=== PATIENT | female | born 1970 | race Caucasian/White ===

== ENCOUNTER 2019-05-06 20:09 | Emergency (ER) | payer BC, OTHER ==
--- NOTE | 2019-05-06 20:22 | UC ---
Complaint Female HPI - HPI Summary HPI Summary: 49 yo female presents with UTI symptoms. She tells me that beginning earlier today she noticed urinary frequency, bladder pressure, and slight bloody tint to her urine. She has had UTIs in the past, but not for many years. She denies fever, chills, abdominal pain, n/v, flank pain. - History Of Current Complaint Stated Complaint: URINARY Time Seen by Provider: 05/06/19 20:21 Hx Obtained From: Patient Hx Last Menstrual Period: 2 yrs-ablation Onset/Duration: Sudden Onset Timing: Constant Severity Initially: Mild Severity Currently: Mild Pain Intensity: 3 Pain Scale Used: 0-10 Numeric - Allergies/Home Medications Allergies/Adverse Reactions: Allergies Allergy/AdvReac Type Severity Reaction Status Date / Time cephalexin [From Keflex] Allergy Hives Verified 05/06/19 20:27 PMH/Surg Hx/FS Hx/Imm Hx - Additional Past Medical History Additional PMH: None - Surgical History Surgical History: Yes Surgery Procedure, Year, and Place: Reduction Mammoplasty-, Right foot Bunion 07/12 - Family History Known Family History: Positive: Non-Contributory - Social History Occupation: Employed Full-time Lives: With Family Alcohol Use: Occasionally Substance Use Type: None Smoking Status (MU): Never Smoked Tobacco Review of Systems All Other Systems Reviewed And Are Negative: No Constitutional: Positive: Negative Skin: Positive: Negative Respiratory: Positive: Negative Cardiovascular: Positive: Negative Gastrointestinal: Positive: Negative Genitourinary: Positive: Dysuria Neurological: Positive: Negative Psychological: Positive: Negative Physical Exam - Summary Physical Exam Summary: GENERAL: NAD. WDWN. No pain distress. SKIN: No rashes, sores, lesions, or open wounds. NECK: Supple. Nontender. No lymphadenopathy. CHEST: CTAB. No r/r/w. No accessory muscle use. Breathing comfortably and in no distress. CV: RRR. Pulses intact. Cap refill <2seconds ABDOMEN: Soft. NTTP. No distention or guarding. No CVA tenderness. Bowel sounds present NEURO: Alert. PSYCH: Age appropriate behavior. Triage Information Reviewed: Yes Vital Signs: Vital Signs: Temp Pulse Resp BP Pulse Ox 98.6 F 69 16 135/76 100 05/06/19 20:24 05/06/19 20:24 05/06/19 20:24 05/06/19 20:24 05/06/19 20:24 Laboratory Tests 05/06/19 20:24 POC Urine Color [place] POC Urine Clarity Clear POC Urine pH 6.5 POC Ur Specif [place] <= 1.005 L POC Urine Protein 1+ A POC Ur Glucose (UA) Negative POC Urine Ketones Negative POC Urine Blood Negative POC Urine Nitrite Negative POC Urine Bilirubin Negative POC Urine Urobilinogen 0.2 POC U Leukocyte Esteras 3+ A Vital Signs Reviewed: Yes Complaint Female Dx - Course Course Of Treatment: UA positive. Will rx for bactrim and send her urine for culture - Differential Dx/Diagnosis Provider Diagnosis: UTI (urinary tract infection) Discharge ED - Sign-Out/Discharge Documenting (check all that apply): Patient Departure All imaging exams completed and their final reports reviewed: No Studies - Discharge Plan Condition: Stable Disposition: HOME Prescriptions: Sulfamethox/Trimethoprim DS* [Bactrim DS 800/160 TAB*] 1 tab PO BID #10 tab Patient Education Materials: Urinary Tract Infection in Women (ED) Referrals: Duane Donahue MD [Primary Care Provider] - Additional Instructions: If you develop a fever, shortness of breath, chest pain, new or worsening symptoms - please call your PCP or go to the ED immediately. - Billing Disposition and Condition Condition: STABLE Disposition: Home
[2019-05-06 20:27] VITALS: BP 135/76
[2019-05-06] MEDS ORDERED: Sulfamethox/Trimethoprim DS 800/160* TAB PO ONE (20:36)
--- NOTE | 2019-05-10 07:36 | UC ---
- Progress Note Progress Note: + E coli on bactrim no change micaelaj Course/Dx - Diagnoses Provider Diagnoses: UTI (urinary tract infection) Discharge ED - Sign-Out/Discharge Documenting (check all that apply): Post-Discharge Follow Up All imaging exams completed and their final reports reviewed: No Studies - Discharge Plan Condition: Stable Disposition: HOME Prescriptions: Sulfamethox/Trimethoprim DS* [Bactrim DS 800/160 TAB*] 1 tab PO BID #10 tab Patient Education Materials: Urinary Tract Infection in Women (ED) Referrals: Duane Donahue MD [Primary Care Provider] - Additional Instructions: If you develop a fever, shortness of breath, chest pain, new or worsening symptoms - please call your PCP or go to the ED immediately. - Billing Disposition and Condition Condition: STABLE Disposition: Home
== END 2019-05-06 20:41 | disposition home or self-care (01) ==
LOC: UCCORT 20:09
DX: N39.0 Urinary tract infection, site not specified (principal); Z88.1 Allergy status to other antibiotic agents
CPT/HCPCS: 81003; 87077; 87086; 87186; 99212; A9270-GY; G0463

== ENCOUNTER 2019-05-11 16:59 | Emergency (ER) | payer BC, OTHER ==
[2019-05-11 17:18] VITALS: BP 97/63
--- NOTE | 2019-05-11 17:31 | UC ---
Lower Extremity/Ankle HPI - HPI Summary HPI Summary: Pt presents with c/o sudden onset of left foot/heel pain that radiates up posterior heel and calf. Pt denies injury or trauma. 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 - History of Current Complaint Chief Complaint: UCLowerExtremity Stated Complaint: LEFT FOOT PAIN Time Seen by Provider: 05/11/19 17:09 Hx Obtained From: Patient Hx Last Menstrual Period: 2 yrs-ablation ?: No Onset/Duration: Sudden Onset, Lasting Days, Still Present Severity Initially: Moderate Severity Currently: Moderate Pain Intensity: 6 Aggravating Factor(s): Standing, Ambulation Alleviating Factor(s): Rest Able to Bear Weight: Yes - painful - Risk Factors Gout Risk Factors: Age Over 40 DVT Risk Factors: Negative Septic Arthritis Risk Factor: Negative - Allergies/Home Medications Allergies/Adverse Reactions: Allergies Allergy/AdvReac Type Severity Reaction Status Date / Time cephalexin [From Keflex] Allergy Hives Verified 05/06/19 20:27 PMH/Surg Hx/FS Hx/Imm Hx Previously Healthy: Yes - Surgical History Surgical History: Yes Surgery Procedure, Year, and Place: Reduction Mammoplasty-, Right foot Bunion 07/12 - Family History Known Family History: Positive: Non-Contributory - Social History Occupation: Employed Full-time Lives: With Family Alcohol Use: Occasionally Substance Use Type: None Smoking Status (MU): Never Smoked Tobacco Have You Smoked in the Last Year: No Review of Systems All Other Systems Reviewed And Are Negative: Yes Constitutional: Positive: Negative Skin: Positive: Negative Eyes: Positive: Negative ENT: Positive: Negative Respiratory: Positive: Negative Cardiovascular: Positive: Negative Gastrointestinal: Positive: Negative Genitourinary: Positive: Negative Motor: Positive: Negative Neurovascular: Positive: Negative Musculoskeletal: Positive: Arthralgia - left heel pain Neurological: Positive: Negative Psychological: Positive: Negative Is Patient Immunocompromised?: No Physical Exam Triage Information Reviewed: Yes Appearance: Well-Appearing Vital Signs: Initial Vital Signs Temp 99.9 F 05/11/19 17:14 Pulse 70 05/11/19 17:14 Resp 16 05/11/19 17:14 BP 97/63 05/11/19 17:14 Pulse Ox 99 05/11/19 17:14 Vital Signs Reviewed: Yes ENT: Positive: Hearing grossly normal Dental Exam: Normal Neck exam: Normal Respiratory: Positive: No respiratory distress Musculoskeletal Exam: Other - reproducible pain at posterior and medial aspect of arch of foot. pt also c/o of posterior calf "soreness" with palpation. NO swelling, or ertyhema noted. Pt denied hx of clotting disorder. Musculoskeletal: Positive: Strength Intact, ROM Intact Lower Extremity Course/Dx - Course Course Of Treatment: I discussed the need to follow up with an computer system validation specialist or a building contractor. I also discussed the s/sx of DVT and what to monitor if her symptoms worsened. Pt verbalized understanding and agreed to plan of care. - Differential Dx/Diagnosis Differential Diagnosis/HQI/PQRI: Arthritis, Bursitis, Cellulitis, Fracture ( Closed), Tendonitis Provider Diagnosis: Pain of left calf, Pain of left heel Discharge ED - Sign-Out/Discharge Documenting (check all that apply): Patient Departure All imaging exams completed and their final reports reviewed: No Studies - Discharge Plan Condition: Stable Disposition: HOME Patient Education Materials: Ice Pack Application (ED), Safe Use of NSAIDs (ED) , Leg Pain (ED), Metatarsalgia (DC) Referrals: Jonas Ho MD [Medical Doctor] - As Soon As Possible Duane Donahue MD [Primary Care Provider] - If Needed - Billing Disposition and Condition Condition: STABLE Disposition: Home
== END 2019-05-11 17:48 | disposition home or self-care (01) ==
LOC: UCCORT 16:59
DX: M25.572 Pain in left ankle and joints of left foot (principal); M79.662 Pain in left lower leg; Z88.1 Allergy status to other antibiotic agents
CPT/HCPCS: 99212; G0463